=== PATIENT | male | born 1950 | race Caucasian/White ===

== ENCOUNTER → 2021-05-09 13:15 | Outpatient (CLI) | payer MEDICARE, SELFPAY ==
[2021-05-09 19:58] LABS: Prostate Specific Antigen 3.19 ng/mL (0.10-4.00)
== END ==
DX: C61 Malignant neoplasm of prostate (principal)
CPT/HCPCS: 84153

== ENCOUNTER → 2021-09-02 13:52 | Outpatient (CLI) | payer MEDICARE, SELFPAY ==
[2021-09-03 21:11] LABS: Prostate Specific Antigen 3.54 ng/mL (0.10-4.00)
[2021-09-03 21:13] LABS: Testosterone 239 ng/dL (71.8-623)
== END ==
DX: C61 Malignant neoplasm of prostate (principal)
CPT/HCPCS: 84153; 84403

== ENCOUNTER → 2021-12-31 09:54 | Outpatient (CLI) | payer MEDICARE, SELFPAY | PROVIDERS: Referring Provider Radiology Diagnostic Radiology; Visit Provider Radiology Diagnostic Radiology | DX: C61 Malignant neoplasm of prostate (principal) | CPT/HCPCS: 36415; 84153 ==

== ENCOUNTER → 2022-04-10 12:10 | Outpatient (CLI) | payer MEDICARE, SELFPAY ==
[2022-04-10 20:05] LABS: Prostate Specific Antigen 3.81 ng/mL (0.10-4.00)
[2022-04-10 20:07] LABS: Testosterone 218 ng/dL (71.8-623)
== END ==
DX: C61 Malignant neoplasm of prostate (principal)
CPT/HCPCS: 84153; 84403

== ENCOUNTER → 2022-09-01 13:34 | Outpatient (CLI) | payer MEDICARE, SELFPAY ==
[2022-09-02 18:14] LABS: Prostate Specific Antigen 4.43 ng/mL (0.10-4.00)
[2022-09-02 18:16] LABS: Testosterone 291 ng/dL (71.8-623)
== END ==
DX: E29.1 Testicular hypofunction (principal)
CPT/HCPCS: 84153; 84403

== ENCOUNTER → 2022-11-25 10:38 | Outpatient (CLI) | payer MEDICARE, SELFPAY ==
[2022-11-25 13:40] LABS: Testosterone 236 ng/dL (71.8-623)
== END ==
PROVIDERS: Referring Provider Nurse Practitioner Adult Health; Visit Provider Nurse Practitioner Adult Health
DX: C61 Malignant neoplasm of prostate (principal)
CPT/HCPCS: 36415; 84153; 84403

== ENCOUNTER → 2023-05-15 10:43 | Outpatient (CLI) | payer MEDICARE, SELFPAY ==
[2023-05-15 13:10] LABS: Prostate Specific Antigen 4.59 ng/mL (0.10-4.00)
[2023-05-15 13:12] LABS: Testosterone 339 ng/dL (71.8-623)
== END ==
PROVIDERS: PCP Family Medicine; Referring Provider Nurse Practitioner Adult Health; Visit Provider Nurse Practitioner Adult Health
DX: C61 Malignant neoplasm of prostate (principal)
CPT/HCPCS: 36415; 84153; 84403

== ENCOUNTER 2023-12-21 09:27 | Day surgery (SDC) | payer MEDICARE, SELFPAY ==
--- NOTE | 2023-12-21 | PATH_ITS ---
[facility] Accession Number: [id number] No. of containers..03 Tissue . 01 Material submitted: . PART A: esophagus, E-G Junction - GEJ PART B: gastrointestinal site - ANTRUM PART C: duodenum - DUODENUM . 01 Clinical history: . 12/23/2023 - VIALS LEAKED IN TRANSIT, UNABLE TO VERIFY SITE(S) - JEG . 01 Diagnosis: Part A: GEJ: Gastroesophageal junction mucosa with mild chronic inflammation. No goblet cell metaplasia, dysplasia, or malignancy identified. . Part B: ANTRUM: Gastric mucosa with mild chronic inflammation. No Helicobacter organisms identified. No intestinal metaplasia, dysplasia, or malignancy identified. . Part C: DUODENUM: Duodenal mucosa with no diagnostic alterations. No active inflammation and no evidence of celiac disease. [facility] 12/28/2023 1800 Local . 01 Electronically signed: . Hai Spence MD, Pathologist NPI- [id number] . 01 Gross description: . A. Received in formalin with two identifiers and no legible site, are three wiley soft tissue fragments 0.2 to 0.3 cm in greatest dimension. Submitted entirely in cassette A1. B. Received in formalin with two identifiers and no legible site, are three wiley soft tissue fragments 0.2 to 0.3 cm in greatest dimension. Submitted entirely in cassette B1. C. Received in formalin with two identifiers and no legible site, are three wiley soft tissue fragments 0.2 to 0.3 cm in greatest dimension. Submitted entirely in cassette C1. ([id number]) /[place] 12/28/2023 1800 Local . 01 Microscopic: . Part B: ANTRUM: An immunohistochemical stain was performed to evaluate for Helicobacter organisms and is negative. The control stains appropriately. * This test was developed and its performance characteristics determined by [facility]. It has not been cleared or approved by the U.S. Food and Drug Administration. The FDA has determined that such clearance or approval is not necessary. This test is used for clinical purposes. It should not be regarded as investigational or for research. . 01 Pathologist provided ICD-10: K20.90, K29.50 . 01 CPT . 326646, 706480, 630080, [id number] Specimen Comment: A courtesy copy of this report has been sent to [phone] Performed at: 01 [facility] [address] [place] [address], [place], [place] [id number] MD Hai Spence MD Phone: [phone]
[2023-12-21 10:29] VITALS: BP 123/67; PULSE 50; RESP 16; TEMP 36.1; O2SAT 96
--- NOTE | 2023-12-21 10:35 | P.HP_ITS ---
History of Present Illness History of Present Illness Date Patient Seen: 12/21/23 Time Patient Seen: 10:36 [place] [facility] [place]ative: Bayron is a 73-year-old man who presents for an EGD and colonoscopy. He did have a colonoscopy in 2021 with some tubular adenomas removed but his prep was not adequate to clear the right colon. He was recommended to return this year for colonoscopy. He also has a history of erosive esophagitis based on a prior EGD. His brother recently from cholangiocarcinoma. No known family history of colon cancer. [facility] Medical History (Updated 12/21/23 @ 10:37 by Genaro Mon MD) History of major depression Hypnotic dependence Recurrent HSV (herpes simplex virus) GERD (gastroesophageal reflux disease) RLS (restless legs syndrome) Hypothyroidism Prostate cancer Stimulant dependence ADHD Insomnia Surgical History (Updated 02/24/23 @ 22:46 by Glory De Leon MD) History of surgical removal of meniscus of knee H/O prostatectomy Hx of thyroidectomy Social History Smoking Status: Never smoker Meds Home Medications and Allergies Home Medications Medication Instructions Recorded Confirmed Type acyclovir 400 mg tablet 400 mg PO DAILY 02/24/23 11/11/23 History cholecalciferol (vitamin D3) 25 25 mcg PO DAILY 02/24/23 11/11/23 History mcg (1,000 unit) capsule levothyroxine 125 mcg capsule 125 mcg PO DAILY 02/24/23 11/11/23 History avqatvpdtl-bjcuigdep-hgesjhd 30 ml intra-cavernosal 02/24/23 11/11/23 History mg-1 mg-20 mcg/mL intracavernosal soln pramipexole 0.5 mg tablet 0.5 mg PO DAILY 02/24/23 11/11/23 History zolpidem 12.5 mg tablet,extended PO 02/24/23 11/11/23 History release,multiphase dextroamphetamine-amphetamine 20 20 mg PO BID ADHD #180 tabs 11/04/23 11/11/23 Rx mg tablet codeine 10 mg-guaifenesin 100 mg/5 5 ml PO .Q HS night time cough 11/11/23 11/11/23 Rx mL oral liquid #120 mL doxazosin 4 mg tablet 8 mg PO DAILY 11/11/23 11/11/23 History omeprazole 40 mg capsule,delayed 20 mg PO DAILY 11/11/23 11/11/23 History release Allergies Allergy/AdvReac Type Severity Reaction Status Date / Time No Known Drug Allergies Allergy Verified 11/11/23 13:34 Exam Const General: healthy appearing Resp Effort & Inspection: normal respiratory effort Assessment & Plan Assessment and plan (1) History of colon polyps: Status: Acute (2) Erosive esophagitis: Status: Acute Plan We reviewed the risks and benefits of EGD and colonoscopy for a history of a risks of the esophagitis and colon polyps and he would like to proceed.
[2023-12-21] MEDS: LACTATED RINGERS 1,000 ML 42 ML IV (10:46)
--- NOTE | 2023-12-21 11:56 | PM.OP.EC ---
Operative Date/Time/Diagnoses Date of procedure: 12/21/23 Time of procedure: 11:56 Pre-op diagnosis: History of erosive esophagitis and tubular adenomas Post-op diagnosis: same Procedure & Clinicians Study performed: EGD and colonoscopy Same procedure as scheduled: Yes Surgeon: Genaro Mon Procedure Notes Procedure in detail: Surgeon: Genaro Mon MD Anesthesia: Alyson Cheng [employer] Procedure in detail: A timeout was performed. A bite blocked was placed and monitors were attached to the patient. The patient was positioned in the left lateral decubitus position. Sedation was administered. Once the patient was sedated the endoscope was inserted through the bite block and passed through the esophagus and stomach and into the duodenum. There was some mild duodenitis in the first portion and random biopsies were taken of the duodenal mucosa with cold forceps. We then withdrew the scope into the stomach. There was mild antritis and random biopsies were taken of the antrum with cold forceps. The endoscope was retroflexed and no hiatal hernia was noted. The endoscope was straightned and withdrawn into the esophagus. There was mild distal esophagitis and random biopsies were taken. EGD findings: Mild inflammation of the duodenum, antrum distal esophagus Next we repositioned the patient for a colonoscopy. A digital rectal exam was performed and was normal. The colonoscope was inserted and advanced to the cecum. The appendiceal orifice was identified and photographed. The terminal ileum was intubated and no abnormalities were noted. The scope was slowly withdrawn over greater than 6 minutes. The prep was excellent. No abnormalities were found. The scope was retroflexed in the rectum and internal hemorrhoids were noted. Colonoscopy findings: Internal hemorrhoids Total procedural EBL: 5 mL Scope withdrawal time: 6 minutes Sedation minutes: 29 minutes Post-procedure Disposition: PACU
[2023-12-21 11:59] VITALS: BP 170/74; PULSE 45; RESP 22; TEMP 36.5; O2SAT 96
[2023-12-21 12:04] VITALS: BP 126/62; PULSE 44; RESP 16; O2SAT 94
[2023-12-21 12:10] VITALS: BP 132/71; PULSE 43; RESP 21; TEMP 36.5; O2SAT 98
== END 2023-12-21 12:25 | disposition home or self-care (01) ==
PROVIDERS: PCP Family Medicine; Referring Provider Surgery; Visit Provider Surgery
PROC: 0DJ08ZZ Inspection of Upper Intestinal Tract, Via Natural or Artificial Opening Endoscopic (ICD-10-PCS; CPT 43235; principal; 2023-12-21 11:45)
PROC: 0DJD8ZZ Inspection of Lower Intestinal Tract, Via Natural or Artificial Opening Endoscopic (ICD-10-PCS; CPT 45378; 2023-12-21 11:45)
DX: Z12.11 Encounter for screening for malignant neoplasm of colon (principal); K64.8 Other hemorrhoids; Z87.19 Personal history of other diseases of the digestive system; K29.80 Duodenitis without bleeding; K29.50 Unspecified chronic gastritis without bleeding; K20.90 Esophagitis, unspecified without bleeding
CPT/HCPCS: 43239; G0105; J2704

== ENCOUNTER → 2024-01-26 11:53 | Outpatient (CLI) | payer MEDICARE, SELFPAY ==
[2024-01-26 13:24] LABS: Clostridium Difficile Tox PCR Positive for C. diff (Negative)
== END ==
LOC: LAB 11:55
PROVIDERS: PCP Family Medicine; Referring Provider Internal Medicine Gastroenterology; Visit Provider Internal Medicine Gastroenterology
DX: R19.7 Diarrhea, unspecified (principal)
CPT/HCPCS: 87324; 87493

== ENCOUNTER 2024-02-16 15:26 | Emergency (ER) | payer MEDICARE, SELFPAY ==
[2024-02-16] VITALS (8 sets, daily range): BP systolic 162–183; BP diastolic 76–91; PULSE 48–64; RESP 14–18; TEMP 36.4; O2SAT 98–99; BMI 28.1
--- NOTE | 2024-02-16 15:42 | ED.GENADULT ---
HPI - General Adult General Chief complaint: Nausea/Vomiting/Diarrhea Stated complaint: sent by Dr Tineo Time Seen by Provider: 02/16/24 15:29 Source: patient Mode of arrival: Ambulatory History of Present Illness HPI narrative: 74-year-old gentleman recently treated for initial episode of Clostridium difficile with 10 days of oral vancomycin. He was feeling better for approximately 10 days then had 48 hours of fevers, chills increasing abdominal pain and diarrhea has restarted. 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 Gibbons. Unfortunately to 2 [place] scheduled he missed the physical appointment but was able to have tele video appointment. With the reports of increasing abdominal pain fevers and diarrhea increasing again 5 days within stopping his vancomycin, Dr. Gibbons was concerned that he may actually getting worse and developing toxic megacolon. Requested he come to the emergency department for further evaluation. Patient states that he is feeling somewhat better but is still having diarrhea and it is beginning to smell similar to the C diff diarrhea. He has having no chest pain, palpitations, headaches Related Data Home Medications Medication Instructions Recorded Confirmed acyclovir 400 mg tablet 400 mg PO DAILY 02/24/23 02/10/24 cholecalciferol (vitamin D3) 25 25 mcg PO DAILY 02/24/23 02/10/24 mcg (1,000 unit) capsule levothyroxine 125 mcg capsule 125 mcg PO DAILY 02/24/23 02/10/24 plveshxale-krffytulx-vxriplw 30 ml intra-cavernosal 02/24/23 02/10/24 mg-1 mg-20 mcg/mL intracavernosal soln pramipexole 0.5 mg tablet 0.5 mg PO DAILY 02/24/23 02/10/24 doxazosin 4 mg tablet 8 mg PO DAILY 11/11/23 02/10/24 omeprazole 40 mg capsule,delayed 20 mg PO DAILY 11/11/23 02/10/24 release Previous Rx's Medication Instructions Recorded dextroamphetamine-amphetamine 20 20 mg PO BID ADHD #60 tabs 02/10/24 mg tablet zolpidem 12.5 mg tablet,extended 12.5 mg PO BEDTIME never take with 02/11/24 release,multiphase alcohol or other drugs #90 tabs Allergies Allergy/AdvReac Type Severity Reaction Status Date / Time No Known Drug Allergies Allergy Verified 02/10/24 14:40 Review of Systems Review of Systems Narrative: Pertinent positive and negative findings as per HPI Patient History Medical History History of major depression Hypnotic dependence Recurrent HSV (herpes simplex virus) GERD (gastroesophageal reflux disease) RLS (restless legs syndrome) Hypothyroidism Prostate cancer Stimulant dependence ADHD Insomnia Surgical History History of surgical removal of meniscus of knee H/O prostatectomy Hx of thyroidectomy Social History Smoking Status: Never smoker alcohol intake: current Smoking Status: Never smoker alcohol intake frequency: a few times a week Substance Use Type: does not use Exam Initial Vital Signs Initial Vital Signs: Vital Signs Temperature 97.6 F 02/16/24 15:32 Pulse Rate 51 L 02/16/24 15:32 Respiratory Rate 18 02/16/24 15:32 Blood Pressure 162/76 H 02/16/24 15:32 Pulse Oximetry 99 02/16/24 15:32 Oxygen Delivery Method Room Air 02/16/24 15:32 General: Healthy appearing, in no acute distress. Able to give a complete and coherent history. Well-nourished well-developed Respiratory: Lungs are clear to auscultation, no wheezing no rales no rhonchi. Full and symmetrical air movement Cardiac: Regular rate and rhythm no murmurs no bruits Abdomen: Soft, mild diffuse tenderness, hyperactive bowel tones, no rebound or guarding. No flank pain. Skin: Warm and dry, no rashes Neurologic: Grossly neurologically intact with no obvious asymmetries or abnormalities Extremities: No trauma, well perfused Psych: Cooperative, appropriate insight and affect Course Orders Ordered: ED Orders 02/16/24 15:44 CT abdomen pelvis w con Stat 02/16/24 16:02 Complete Blood Count AUTO DIFF Stat Comprehensive Metabolic Panel Stat Lactate (Lactic Acid) Stat Lipase Stat Magnesium Stat 02/16/24 16:11 GI Panel (Film Array) Stat Discontinued Medications Sodium Chloride (Normal Saline 0.9%) 1,000 mls @ 1,000 mls/hr IV BOLUS ONE Stop: 02/16/24 16:42 Last Infusion: 02/16/24 17:20 Dose: Infused Documented By: Admin: 02/16/24 16:12 Dose: 1,000 mls/hr Documented By: MANDI Vital Signs Vital signs: Vital Signs - 8 hr 02/16/24 15:32 02/16/24 16:16 02/16/24 16:16 Temperature 97.6 F Pulse Rate 51 L 48 L Respiratory Rate 18 Blood Pressure 162/76 H 175/76 H Pulse Oximetry 99 99 Oxygen Delivery Method Room Air 02/16/24 16:30 02/16/24 17:00 02/16/24 17:19 Temperature Pulse Rate 48 L 62 59 L Respiratory Rate Blood Pressure Pulse Oximetry 98 98 98 Oxygen Delivery Method Room Air 02/16/24 17:19 02/16/24 17:30 02/16/24 17:30 Temperature Pulse Rate 61 Respiratory Rate 14 Blood Pressure 183/91 H 182/81 H Pulse Oximetry 98 Oxygen Delivery Method Room Air Medical Decision Making Lab Data 02/16/24 16:02 02/16/24 16:02 Labs: Lab Results 02/16/24 Range/Units 16:02 WBC 6.9 (4.5-11.0) X10^3/uL RBC 4.16 L (4.5-5.9) X10^6/uL Hgb 13.5 (13.5-17.5) g/dL Hct 40.3 L (41-53) % MCV 96.8 (80-100) fL MCH 32.4 (26-34) PG MCHC 33.5 (30-36) % RDW 13.8 (11.6-14.8) % Plt Count 191 (150-400) X10^3/uL Neut % (Auto) 61.4 (50-75) % Lymph % (Auto) 24.3 L (25-40) % Graves % (Auto) 9.8 (3-14) % Eos % (Auto) 3.6 (2-4) % Baso % (Auto) 0.9 (0-2) % Neut # (Auto) 4200 (6028-4502) /uL Lymph # (Auto) 1700 (8914-3661) /uL Graves # (Auto) 700 (0-900) /uL Eos # (Auto) 200 (0-450) /uL Baso # (Auto) 100 (0-100) /uL Sodium 139 (137-145) mmol/L Potassium 3.6 (3.4-5.1) mmol/L Chloride 109 H (98-107) mmol/L Carbon Dioxide 26 (22-32) mmol/L BUN 16 (9-20) mg/dL Creatinine 0.91 (0.66-1.25) mg/dL Estimated GFR > 60 (>60) mL/min BUN/Creatinine Ratio 17.6 (6-22) Glucose 104 (80-110) mg/dL Lactate 0.7 (0.7-2.1) mmol/L Calcium 8.4 (8.4-10.2) mg/dL Magnesium 2.3 (1.6-2.3) mg/dL Total Bilirubin 0.5 (0.2-1.3) mg/dL AST 26 (17-59) IU/L ALT 30 (<50) IU/L Alkaline Phosphatase 67 (38-126) U/L Total Protein 6.3 (6.3-8.2) g/dL Albumin 3.9 (3.5-5.0) g/dL Globulin 2.4 (1.7-4.1) g/dL Albumin/Globulin Ratio 1.6 (1.0-2.8) Lipase 65 (23-300) U/L MDM Narrative Medical decision making narrative: CC: Concern for complications of recurrent Clostridium difficile diarrhea Complicating co-morbidities: Completed 10 days of oral vancomycin for C diff on February 10. Seemed to be improved for a couple of days than fevers, chills, abdominal pain and diarrhea is restarting Data collected from: patient, Dr. Gibbons Social determinants of health that may influence the patients condition: Patient lives on [facility] and accessing care can be challenging Differential considered: Recurrent Clostridium difficile, viral syndrome, toxic megacolon Exam documented above, pertinent findings include: Exam is actually fairly reassuring. He has some mild diffuse abdominal pain but certainly not an acute surgical abdomen Lab Test results independently reviewed as above. Pertinent findings: CBC is reassuring with no significant leukocytosis Chemistries are completely unremarkable Imaging studies independently reviewed: Findings show mild segmental colitis without evidence of abscess, toxic megacolon or other dramatic abnormalities Consultations: Case was reviewed with prior to patient arrival and he was sent a follow up message at time of patient discharge Discussion: 74-year-old gentleman history of Clostridium difficile recently completed a course of antibiotics has been improved now getting worse restarting antibiotics, his outpatient provider was concerned that with fever increasing abdominal pain and decrease in stool output that he may be developing toxic megacolon and requested ER evaluation. Your evaluation was completed and is actually quite reassuring. He has given a his 1st dose of oral vancomycin to begin his 2nd overall course of oral vancomycin is given in the ER and has already called in a prescription for the remaining medicine to the patient's pharmacy. All findings reviewed with the patient. His stool PCR panel is currently pending and will follow up on this. Questions are answered and he is safe for discharge Discharge Plan Departure Patient Disposition: Home Clinical Impression: Clostridium difficile diarrhea Instructions: Clostridioides (Clostridium) difficile Infection Activity Restrictions/Additional Instructions: Thank you for coming in today Your lab work was quite reassuring. Your CT scan does show mild colitis and you do need to complete the 2nd vancomycin course recommended by Dr. Gibbons. I did give you the 1st dose of oral vancomycin in the emergency department If you find that you are getting worse or have new symptoms please feel free to return to the ER Prescriptions: No Action dextroamphetamine-amphetamine 20 mg tablet 20 mg PO BID Qty: 60 0RF zolpidem 12.5 mg tablet,ext release multiphase 12.5 mg PO BEDTIME Qty: 90 0RF acyclovir 400 mg tablet 400 mg PO DAILY levothyroxine 125 mcg capsule 125 mcg PO DAILY pramipexole 0.5 mg tablet 0.5 mg PO DAILY cholecalciferol (vitamin D3) 25 mcg (1,000 unit) capsule 25 mcg PO DAILY uxqqe-rveoplrph-zvcobdn-water 30 mg-1 mg- 20 mcg/mL solution intra-cavernosal Patient Comments: UROLOGY RX. This is NOT the correct RX. should be 10mcg alprostadil. doxazosin 4 mg tablet 8 mg PO DAILY omeprazole 40 mg capsule,delayed release(DR/EC) 20 mg PO DAILY Referrals: Glory De Leon MD [Primary Care Provider] - Stand Alone Forms: Patient Portal/API
--- NOTE | 2024-02-16 15:44 | DI.CT.S_ITS ---
PROCEDURE: CT ABDOMEN PELVIS W CON INDICATIONS: abdominal pain worse after C diff recurrence TECHNIQUE: After the administration of intravenous contrast, axial sections acquired from the lung bases to the pubic symphysis. Coronal and sagittal reformats were performed. For radiation dose reduction, the following was used: automated exposure control, adjustment of mA and/or kV according to patient size. COMPARISON: None. FINDINGS: Image quality: Diagnostic. Lower Chest: No significant findings. ABDOMEN: Liver: No solid mass. Gallbladder: No radiopaque gallstones or wall thickening. Biliary ducts: No biliary dilation. Pancreas: No ductal dilation. Spleen: Size is within normal limits. Adrenal Glands: No adrenal nodules. Kidneys and Ureters: No hydronephrosis. No solid mass. No complex renal cystic lesion which requires follow up. Stomach and Bowel: Mild diffuse thickening of the wall of the cecum and right colon. Findings are consistent with mild segmental colitis. There is also mild thickening present of the rectum and distal sigmoid as well, consistent with an additional area of segmental colitis. And mild diverticulosis without evidence of diverticulitis. No dilated loops of bowel. Peritoneum: No abnormal intraperitoneal fluid. No free air. Ventral Wall: No significant ventral hernia. Abdominal Nodes: No retroperitoneal or mesenteric adenopathy by size criteria. Vessels: Aorta and inferior vena cava are normal in size. PELVIS: Pelvic Organs: Moderate prostatomegaly.. Bladder: No bladder wall thickening, accounting for underdistention. Pelvic Nodes: No enlarged lymph nodes. Miscellaneous: No inguinal hernias are seen. Bones: No aggressive osseous abnormality. Diffuse lumbar degenerative change. IMPRESSION: 1. Findings are consistent with mild segmental colitis involving the cecum and right colon as well as distal sigmoid and rectum. Findings may represent residual changes from C difficile colitis. 2. Moderate prostatomegaly. Dictated by: Pepe Vu M.D. on 02/16/2024 at 17:35 Approved by: Pepe Vu M.D. on 02/16/2024 at 17:42
[2024-02-16] MEDS: SODIUM CHLORIDE 0.9% 1,000 ML 1000 ML IV (16:12)
[2024-02-16 16:16] LABS: Add Manual Diff / Slide Review NO; Basophils Absolute Auto 100 /uL (0-100); Basophils Percent Auto 0.9 % (0-2); Eosinophils Absolute Auto 200 /uL (0-450); Eosinophils Percent Auto 3.6 % (2-4); Hematocrit 40.3 % (41-53); Hemoglobin 13.5 g/dL (13.5-17.5); Lymphocytes Absolute Auto 1700 /uL (1100-4500); Lymphocytes Percent Auto 24.3 % (25-40); Mean Corpuscular HGB Conc 33.5 % (30-36); Mean Corpuscular Hemoglobin 32.4 PG (26-34); Mean Corpuscular Volume 96.8 fL (80-100); Monocytes Absolute Auto 700 /uL (0-900); Monocytes Percent Auto 9.8 % (3-14); Neutrophils Absolute Auto 4200 /uL (1500-7000); Neutrophils Percent Auto 61.4 % (50-75); Platelet Count 191 X10^3/uL (150-400); Red Blood Cell Count 4.16 X10^6/uL (4.5-5.9); Red Cell Distribution Width 13.8 % (11.6-14.8); White Blood Cell Count 6.9 X10^3/uL (4.5-11.0)
[2024-02-16 16:31] LABS: Alanine Aminotransferase 30 IU/L (<50); Albumin 3.9 g/dL (3.5-5.0); Albumin Globulin Ratio 1.6 (1.0-2.8); Alkaline Phosphatase 67 U/L (38-126); Aspartate Aminotransferase 26 IU/L (17-59); BUN Creatinine Ratio 17.6 (6-22); Bilirubin Total 0.5 mg/dL (0.2-1.3); Blood Urea Nitrogen 16 mg/dL (9-20); Calcium 8.4 mg/dL (8.4-10.2); Carbon Dioxide 26 mmol/L (22-32); Chloride 109 mmol/L (98-107); Estimated Glomerular Filt Rate > 60 mL/min (>60); Globulin 2.4 g/dL (1.7-4.1); Glucose 104 mg/dL (80-110); HEMOLYSIS < 15 (0-50); Lactate (Lactic Acid) 0.7 mmol/L (0.7-2.1); Lipase 65 U/L (23-300); Magnesium 2.3 mg/dL (1.6-2.3); Potassium 3.6 mmol/L (3.4-5.1); Sodium 139 mmol/L (137-145); Total Protein 6.3 g/dL (6.3-8.2)
[2024-02-16] MEDS: VANCOMYCIN 125 MG CAPSULE PO (18:00)
[2024-02-16 18:16] LABS: Adenovirus F 40/41 Not Detected (Not Detect); Astrovirus Not Detected (Not Detect); Campylobacter Not Detected (Not Detect); Cryptosporidium Not Detected (Not Detect); Cyclospora cayetanensis Not Detected (Not Detect); Entamoeba histolytica Not Detected (Not Detect); Enteroaggregative E.coli Not Detected (Not Detect); Enteropathogenic E.coli Not Detected (Not Detect); Enterotoxigenic E.coli It/st Not Detected (Not Detect); Giardia lamblia Not Detected (Not Detect); Norovirus GI/GII Not Detected (Not Detect); Plesiomonsa shigelloides Not Detected (Not Detect); Rotavirus A Not Detected (Not Detect); Salmonella Not Detected (Not Detect); Sapovirus Not Detected (Not Detect); Shiga-like toxin-prod E.coli Not Detected (Not Detect); Shigella/Enteroinvasive E.coli Not Detected (Not Detect); Vibrio Not Detected (Not Detect); Vibrio cholerae Not Detected (Not Detect); Yersinia enterocolitica Not Detected (Not Detect)
[2024-02-16 18:24] LABS: Clostridium difficile toxin AB Detected (Not Detect)
[2024-02-18 12:36] LABS: C difficie Toxins A and B, EIA Positive (Negative)
== END 2024-02-16 18:46 | disposition home or self-care (01) ==
PROVIDERS: Emergency Provider Emergency Medicine; PCP Family Medicine; Referring Provider Internal Medicine Gastroenterology
DX: A04.71 Enterocolitis due to Clostridium difficile, recurrent (principal)
CPT/HCPCS: 74177; 80053; 83605; 83690; 83735; 85025; 87324; 87507; 99284; Q9967

== ENCOUNTER → 2024-07-07 10:43 | Outpatient (CLI) | payer MEDICARE, SELFPAY ==
--- NOTE | 2024-07-07 10:45 | DI.MRI.S_ITS ---
PROCEDURE: MR PELVIC PROSTATE PROTOCOL INDICATIONS: prostate cancer,ED TECHNIQUE: Coronal HASTE, axial T1 FSE with fat saturation, 3-plane nonbreath-hold T2 FSE. After the administration of contrast, dynamic axial, delayed axial and coronal VIBE or 2-D FLASH with fat saturation through the pelvis. Diffusion weighted imaging and ADC was performed. COMPARISON: [facility] Facility, MR, MR PELVIC PROSTATE PROTOCOL, 07/08/2023, 13:22. FINDINGS: Image quality: Diffusion weighted and dynamic contrast enhanced images are diagnostic. Prostate: Gland size is 5.4 x 4.5 x 4.9 cm; ellipsoid gland volume is 61.9 mL. BPH nodules in the right transition zone compress and displace the prostatic urethra to the left. There is T2 hypointense linear scarring along the left anterior prostate margin, similar to prior exams. Lesion 1: Location: Right apex, 7-8 o'clock, previously seen hypointensity is no longer seen as a well-defined lesion. T2W signal: No abnormal signal DWI signal: Minimally hyperintense ADC signal: Minimal hypointensity Enhancement: No. Asymmetric right apical enhancement does not correspond to the site of lesion. Extracapsular extension: No PI-RADS score: Two Lesion 2: Location: Left anterior lateral transition zone at the gland base, on axial diffusion series 25, image nine and coronal series five, image 12. Size: 1.1 cm. T2W signal: Mildly hypointense DWI signal: Moderately hyperintense ADC signal: Mildly hypointense Enhancement: Yes. Extracapsular extension: No PI-RADS score: Two, probable BPH nodule diffusion restriction or scarring Genitourinary system: Bladder wall thickness is normal. Distal ureters are non distended. Bowel and peritoneum: No pathologic free pelvic fluid. Inferior colon and small bowel loops are normal in caliber. Nodes and vessels: No pelvic or inguinal adenopathy by size criteria. Iliac vessels are normal in caliber. Soft tissues: No inguinal hernias. Bones: Marrow demonstrates normal overall signal, without lesions to suggest metastases. IMPRESSION: The known right apical peripheral zone lesion is not well seen on this exam and may be regressing if the patient is on treatment. There is a PI-RADS two lesion in the transition zone on the left near the gland base which is most likely scarring given lack of focal T2 hypointensity. No pelvic lymphadenopathy by size criteria. No aggressive osseous abnormality. Dictated by: Jillian Bower M.D. on 07/07/2024 at 15:04 Approved by: Jillian Bower M.D. on 07/07/2024 at 15:45
== END ==
PROVIDERS: PCP Family Medicine
DX: C61 Malignant neoplasm of prostate (principal); N52.3 Postprocedural erectile dysfunction
CPT/HCPCS: 72197; A9579

== ENCOUNTER → 2024-12-19 16:53 | Outpatient (CLI) | payer MEDICARE, OTHER, SELFPAY | PROVIDERS: PCP Family Medicine; Visit Provider Family Medicine | DX: S61.203A Unspecified open wound of left middle finger without damage to nail, initial encounter (principal) | CPT/HCPCS: 87070; 87075; 87077; 87147; 87186; 87205 ==

== ENCOUNTER → 2025-02-10 12:36 | Outpatient (CLI) | payer MEDICARE, OTHER, SELFPAY ==
[2025-02-10 15:15] LABS: Prostate Specific Antigen 7.62 ng/mL (0.10-4.00)
== END ==
PROVIDERS: PCP Family Medicine; Referring Provider Internal Medicine; Visit Provider Internal Medicine
DX: N40.1 Benign prostatic hyperplasia with lower urinary tract symptoms (principal); R97.20 Elevated prostate specific antigen [PSA]
CPT/HCPCS: 36415; 84153

== ENCOUNTER → 2025-06-24 10:36 | Outpatient (CLI) | payer MEDICARE, OTHER, SELFPAY ==
--- NOTE | 2025-06-24 10:38 | DI.MRI.S_ITS ---
PROCEDURE: MR PELVIC PROSTATE PROTOCOL INDICATIONS: CANCER TECHNIQUE: Coronal HASTE, axial T1 FSE with fat saturation, 3-plane nonbreath-hold T2 FSE. After the administration of contrast, dynamic axial, delayed axial and coronal VIBE or 2-D FLASH with fat saturation through the pelvis. Diffusion weighted imaging and ADC was performed. COMPARISON: [facility], , MR PELVIC PROSTATE PROTOCOL, 07/07/2024, 11:02. FINDINGS: Image quality: Diffusion weighted and dynamic contrast enhanced images are diagnostic. Prostate: Gland size is 5.5 x 5.1 by 5.3 cm; ellipsoid gland volume is 77.3 mL. Given PSA of 7.62, PSA density is 0.100. Previous lesion one is no longer seen. Previous lesion two is linear and very T2 hypointense, most consistent with scarring. Lesion 1: Location: Left posteromedial peripheral zone at the mid gland level on axial series 4, image 12 and coronal series 5, image 17., Size: 1.3 cm. T2W signal: Moderately hypointense DWI signal: Moderately hyperintense ADC signal: Mildly hypointense Enhancement: No Extracapsular extension: No PI-RADS score: Three Genitourinary system: Bladder wall thickness is normal. Distal ureters are non distended. Bowel and peritoneum: No pathologic free pelvic fluid. Inferior colon and small bowel loops are normal in caliber. Nodes and vessels: No pelvic or inguinal adenopathy by size criteria. Iliac vessels are normal in caliber. Soft tissues: No inguinal hernias. Bones: Marrow demonstrates normal overall signal, without lesions to suggest metastases. IMPRESSION: PI-RADS three lesion in the left peripheral zone, slightly more prominent compared to prior. No other definite abnormalities. No pelvic lymphadenopathy by size criteria. No aggressive osseous abnormality. Dictated by: Jillian Bower M.D. on 06/26/2025 at 14:14 Approved by: Jillian Bower M.D. on 06/26/2025 at 15:02
== END ==
PROVIDERS: PCP Family Medicine
DX: C61 Malignant neoplasm of prostate (principal); N52.1 Erectile dysfunction due to diseases classified elsewhere
CPT/HCPCS: 72197; A9579